=== PATIENT | male | born 1960 | race Caucasian/White ===

== ENCOUNTER 2020-08-02 09:29 | Emergency (ER) | payer BC ==
[~2020-08-02] VITALS: Ht 172.7 cm; Wt 90.9 kg
[2020-08-02 11:18] LABS: LYMPHOCYTES # (AUTO) 1.3 X10'3 (1.1-4.8); LYMPHOCYTES % (AUTO) 13.6 % (21-51); MEAN PLATELET VOLUME 6.7 FL (7.4-10.4); MONOCYTES # (AUTO) 0.8 X10'3 (0-0.9); NEUTROPHILS # (AUTO) 7.4 X10'3 (1.8-7.7); RED CELL DISTRIBUTION WIDTH 12.6 % (11.5-14.5)
[2020-08-02 11:20] LABS: BASOPHILS % (AUTO) 0.4 % (0-1); EOSINOPHILS # (AUTO) 0.2 X10'3 (0-0.9); EOSINOPHILS % (AUTO) 1.6 % (0-6); HEMATOCRIT 42.4 % (42.0-52.0); HEMOGLOBIN 14.6 g/dl (14.0-17.9); MEAN CORPUSCULAR HEMOGLOBIN 33.1 PG (27.0-31.0); MEAN CORPUSCULAR HGB CONC 34.5 g/dL (33.0-36.5); MEAN CORPUSCULAR VOLUME 95.7 FL (78-98); MONOCYTES % (AUTO) 8.3 % (2-12); NEUTROPHILS % (AUTO) 76.1 % (42-75); PLATELET COUNT 269 X10'3 (140-440); RED BLOOD COUNT 4.43 X10'6 (4.70-6.10); WHITE BLOOD COUNT 9.8 X10'3 (4.5-11.0)
[2020-08-02 11:22] LABS: CLARITY,URINE CLEAR (Clear); COLOR,URINE YELLOW (Yellow); GLUCOSE, URINE NEGATIVE (Neg); KETONES,URINE NEGATIVE (Neg); LEUKOCYTE ESTERASE ,URINE NEGATIVE (Neg); NITRITES, URINE NEGATIVE (Neg); OCCULT BLOOD,URINE NEGATIVE (Neg); PH,URINE 5.5 (4.8-8.0); PROTEIN,URINE NEGATIVE (Neg); UROBILINOGEN,URINE 0.2 E.U/dL (0.2-1.0)
[2020-08-02 11:23] LABS: UA COLLECTION TYPE URINAL
[2020-08-02 11:32] LABS: ALANINE AMINOTRANSFERASE 42 U/L (12-78); ALBUMIN 3.5 G/DL (3.4-5.0); ALBUMIN/GLOBULIN RATIO 0.9 (1.1-1.5); ALKALINE PHOSPHATASE 98 IU/L (46-116); ANION GAP 10 (8-16); ASPARTATE AMINO TRANSFERASE 23 U/L (10-37); BILIRUBIN,TOTAL 1.2 MG/DL (0.1-1.0); BLOOD UREA NITROGEN 13 MG/DL (7-18); BUN/CREATININE RATIO 10.5 (5.4-32.0); C-REACTIVE PROTEIN 6.23 MG/DL (0.0-0.5); CALCIUM 8.7 MG/DL (8.5-10.1); CHLORIDE 100 MMOL/L (99-107); CREATININE 1.24 MG/DL (0.60-1.10); GLUCOSE 155 MG/DL (70-104); POTASSIUM 3.8 MMOL/L (3.5-5.1); SODIUM 135 MMOL/L (135-145); TOTAL CARBON DIOXIDE 24.9 MMOL/L (24-32); TOTAL PROTEIN 7.5 G/DL (6.4-8.2); eGFR 60 ML/MIN
[2020-08-02 11:53] LABS: TOTAL CELLS COUNTED 100
[2020-08-02 11:54] LABS: PLATELET ESTIMATE NORMAL; POLYCHROMASIA FEW; STOMATOCYTES 1+
[2020-08-02] MEDS ORDERED: colchicine 0.6mg tablet PO ONE (12:00)
[2020-08-02] MEDS ORDERED: cephalexin 250mg capsule PO ONE (12:00)
[2020-08-02] MEDS ORDERED: naproxen 500mg tablet PO ONE (12:00)
[2020-08-02] MEDS ORDERED: triamcinolone acetonide 40mg/ml inj IM ONE (12:40)
[2020-08-02] MEDS ORDERED: COLC0.6T72 PO (14:39)
[2020-08-02] MEDS ORDERED: NAPR-56 PO (14:39)
--- NOTE | 2020-08-02 15:43 | NUR ---
back to room after MRI, tolerated well, no distress
[2020-08-02] MEDS ORDERED: ondansetron/PF 4mg/2ml inj IV PRN (17:55)
[2020-08-02] MEDS ORDERED: acetaminophen 325mg tablet PO PRN ×2 (17:55)
[2020-08-02] MEDS ORDERED: magnesium 4gm in 100ml NS 100 ML IV PRN (17:55)
[2020-08-02] MEDS ORDERED: LORazepam 1 MG tablet PO PRN (17:55)
[2020-08-02] MEDS ORDERED: potassium Cl 20 mEq SR tablet PO PRN ×2 (17:55)
[2020-08-02] MEDS ORDERED: potassium Cl 40MEQ/1/2NS 520ml 520 ML IV PRN ×2 (17:55)
[2020-08-02] MEDS ORDERED: mag hydrox/Alum hydrox/simeth 30ml oral suspension PO PRN (17:55)
[2020-08-02] MEDS ORDERED: magnesium 2GM in 50ml NS 50 ML IV PRN (17:55)
[2020-08-02] MEDS ORDERED: magnesium hydroxide 30ml (MOM) UD suspension PO PRN (17:55)
[2020-08-02] MEDS ORDERED: LORazepam 2 mg/ml vial IV PRN (17:55)
[2020-08-02] MEDS ORDERED: morphine 2 MG/ML inj. syringe IV PRN (17:55)
[2020-08-02] MEDS ORDERED: magnesium Cl slow-release 64mg tablet PO PRN (17:55)
[2020-08-02 18:33] LABS: HEMOGLOBIN A1C 6.3 % (4.5-6.2)
[2020-08-02] MEDS: normal saline 1000ml 1,000 ML IV SCH (19:05)
[2020-08-02] MEDS: K and/or MAG REPLACEMENT MC SCH (19:57)
[2020-08-02] MEDS: colchicine 0.6mg tablet PO SCH (20:39)
[2020-08-02] MEDS: naproxen 500mg tablet PO SCH (20:39)
[2020-08-02] MEDS: heparin, porcine 5000 units/ml vial SQ SCH (20:41)
[2020-08-02] MEDS ORDERED: temazepam 15mg capsule PO PRN (21:00)
[2020-08-03] MEDS: normal saline 1000ml 1,000 ML IV SCH (04:06)
--- NOTE | 2020-08-03 05:20 | NUR ---
labs drawn and sent to lab
[2020-08-03 05:36] LABS: BASOPHILS # (AUTO) 0.1 X10'3 (0-0.2); BASOPHILS % (AUTO) 1.1 % (0-1); EOSINOPHILS # (AUTO) 0.2 X10'3 (0-0.9); EOSINOPHILS % (AUTO) 2.4 % (0-6); HEMOGLOBIN 12.6 g/dl (14.0-17.9); LYMPHOCYTES # (AUTO) 0.8 X10'3 (1.1-4.8); LYMPHOCYTES % (AUTO) 11.2 % (21-51); MEAN CORPUSCULAR HEMOGLOBIN 32.8 PG (27.0-31.0); MEAN CORPUSCULAR HGB CONC 34.1 g/dL (33.0-36.5); MEAN CORPUSCULAR VOLUME 96.1 FL (78-98); MEAN PLATELET VOLUME 6.8 FL (7.4-10.4); MONOCYTES # (AUTO) 0.6 X10'3 (0-0.9); MONOCYTES % (AUTO) 7.9 % (2-12); NEUTROPHILS # (AUTO) 5.5 X10'3 (1.8-7.7); NEUTROPHILS % (AUTO) 77.4 % (42-75); PLATELET COUNT 227 X10'3 (140-440); RED BLOOD COUNT 3.85 X10'6 (4.70-6.10); RED CELL DISTRIBUTION WIDTH 12.6 % (11.5-14.5); WHITE BLOOD COUNT 7.1 X10'3 (4.5-11.0)
[2020-08-03 05:51] LABS: ALANINE AMINOTRANSFERASE 43 U/L (12-78); ALBUMIN 2.9 G/DL (3.4-5.0); ALBUMIN/GLOBULIN RATIO 0.8 (1.1-1.5); ALKALINE PHOSPHATASE 96 IU/L (46-116); ANION GAP 9 (8-16); ASPARTATE AMINO TRANSFERASE 24 U/L (10-37); BILIRUBIN,TOTAL 0.7 MG/DL (0.1-1.0); BLOOD UREA NITROGEN 14 MG/DL (7-18); BUN/CREATININE RATIO 14.7 (5.4-32.0); CALCIUM 7.8 MG/DL (8.5-10.1); CHLORIDE 106 MMOL/L (99-107); CREATININE 0.95 MG/DL (0.60-1.10); GLUCOSE 121 MG/DL (70-104); MAGNESIUM 2.1 MG/DL (1.5-2.4); POTASSIUM 4.4 MMOL/L (3.5-5.1); SODIUM 139 MMOL/L (135-145); TOTAL PROTEIN 6.5 G/DL (6.4-8.2); eGFR 81 ML/MIN
--- NOTE | 2020-08-03 05:58 | NUR ---
dr garay at bedside to tab left anckle joint and sent fluid to lab
[2020-08-03] MEDS ORDERED: morphine 2 MG/ML inj. syringe IV PRN (06:00)
[2020-08-03 07:25] LABS: APPEARANCE,SYNOVIAL FLUID CLOUDY; COLOR,SYNOVIAL FLUID YELLOW
[2020-08-03 07:26] LABS: LYMPHOCYTES,SYNOVIAL FLUID 1 % (0-75); NEUTROPHILS,SYNOVIAL FLUID 99 % (0-25); SYN RBC 3500 /CU MM (0); SYN WBC 32000 /CU MM (0-200); SYNOVIAL FLUID CRYSTALS QT NO CRYSTALS SEEN
[2020-08-03] MEDS: K and/or MAG REPLACEMENT MC SCH (08:00)
--- NOTE | 2020-08-03 08:47 | NUR ---
us in room with patient
[2020-08-03] MEDS: naproxen 500mg tablet PO SCH (10:22)
[2020-08-03] MEDS: heparin, porcine 5000 units/ml vial SQ SCH (10:27)
[2020-08-03] MEDS: colchicine 0.6mg tablet PO SCH (10:27)
--- NOTE | 2020-08-03 11:43 | NUR ---
Pt here at bedside with pt for eval.
[2020-08-03 12:31] VITALS: BP 120/80
--- NOTE | 2020-08-05 15:44 | NUR ---
CASE MANAGEMENT DISCHARGE FOLLOW UP: Telephoned pt, left voicemail requesting call back.
== END 2020-08-03 12:31 | disposition home or self-care (01) ==
LOC: ER 09:30 → UNDOADMIN 17:52 → ED HOLD 17:52 → UNDODISIN 08-03 12:31 → ER 08-03 12:31
DX: S93.402A Sprain of unspecified ligament of left ankle, initial encounter (principal); M25.475 Effusion, left foot; M79.672 Pain in left foot; M14.672 Charcot's joint, left ankle and foot; Z90.49 Acquired absence of other specified parts of digestive tract; Z79.899 Other long term (current) drug therapy; W50.2XXA Accidental twist by another person, initial encounter; Y93.89 Activity, other specified; Y92.89 Other specified places as the place of occurrence of the external cause; Y99.8 Other external cause status
CPT/HCPCS: 36415; 72148; 73610; 73630; 73721; 80053; 81003; 83036; 83735; 84145; 84550; 85007; 85025; 85651; 86140; 87070; 89051; 89060; 96361; 96372; 96374; 96375; 97116; 97161; 99285; J1644; J2270; J2405; J3301; J7030; G0378